=== PATIENT | female | born 1960 | race Caucasian/White ===

== ENCOUNTER → 2021-12-23 | Outpatient (CLI) | payer MEDICAID ==
--- NOTE | 2021-12-23 13:04 | Diagnostic Imaging Report ---
INDICATION: Back pain. TIME OF EXAM: 11:58 a.m. FINDINGS: Two views of the thoracic spine were obtained. Curvature and alignment is normal. Vertebral body heights are maintained. No acute compression fracture is seen. There does appear to be some compression of approximately L1, age indeterminate. There is significant multilevel spondylosis with disc space narrowing and marginal spurring. Pedicles and paraspinous line are intact. IMPRESSION: Thoracic spondylosis. No acute thoracic compression is seen. There is some central and anterior compression of approximately L1 vertebral body, age indeterminate. Dictated by: Dictated on workstation # [id number]
== END ==
LOC: RAD 11:48
PROVIDERS: ATTEND Registered Nurse
DX: M47.24 Other spondylosis with radiculopathy, thoracic region (principal); M48.55XA Collapsed vertebra, not elsewhere classified, thoracolumbar region, initial encounter for fracture
CPT/HCPCS: 72070